=== PATIENT | male | born 1955 | race Caucasian/White ===

== ENCOUNTER 2020-11-04 13:11 | Observation (INO) | payer OTHER, SELFPAY ==
[2020-11-04] VITALS (8 sets, daily range): BP systolic 156–197; BP diastolic 92–107; PULSE 74–107; RESP 17–25; TEMP 37–37.1; O2SAT 97–100
--- NOTE | ~2020-11-04 | XR_ITS ---
EXAMINATION: XR chest 1V portable INDICATION: Midsternal chest pain TECHNIQUE: Portable AP chest at 1346 hours COMPARISON: 05/06/2014 FINDINGS: The lungs are free of acute opacities. There is no pleural effusion or pneumothorax. The ca rdiomediastinal silhouette is normal. There is mild osteoarthritis of the shoulders. IMPRESSION: 1. No acute cardiopulmonary abnormality. Reviewed, dictated and finalized at location A.
--- NOTE | ~2020-11-04 | CT_ITS ---
EXAMINATION: CTA chest PE protocol DATE: 11/04/2020 16:14 INDICATION: Chest pain TECHNIQUE: Computed tomography angiography (CTA) of the chest was performed with 100 mL Omnipaque-350 intravenous contrast timed to evaluate the pulmonary arteries. Coronal maximum intensity projection 3D-reconstructions were created by the technologist. Automated exposure control and iterative reconst ruction technique were employed. Exam dose: 511.66 mGy-cm total exam DLP. COMPARISON: 11/04/2020 portable AP chest FINDINGS: There is diagnostic contrast enhancement of the pulmonary arteries and no evidence of pulmo nary embolism. Normal heart size. There is mild thoracic aortic aneurysm, the ascending aorta measuring up to 4 cm d iameter, the aortic arch measuring up to approximately 3.2 cm diameter. No hilar or mediastinal mass lesion or lymphadenopathy. No pulmonary infiltrate or consolidation or pulmonary mass density. Subacute or old posterior medial right 10th rib fracture deformity. Included skeletal structures are otherwise unremarkable. IMPRESSION: No evidence of pulmonary embolism Reviewed, dictated and finalized at Location A. Reviewed, dictated and finalized at location B.
--- NOTE | ~2020-11-04 | CT_ITS ---
EXAMINATION: CT brain wo con INDICATION: Headache COMPARISON: None TECHNIQUE: Standard unenhanced head CT. The dose-length product (DLP) was 605.33 mGy-cm. The mA was a djusted according to patient size. Iterative reconstruction technique was employed. FINDINGS: There is no acute intraparenchymal hemorrhage. No evidence of mass lesion. No evidence of a cute infarction. There is mild periventricular and subcortical hypodensity probably related to small vessel ischemic disease. There is mild prominence of the sulci and ventricles related to cerebral atr ophy. Intracranial calcified cerebral atherosclerosis is noted. There are no extra-axial collections. There is no mass effect or midline shift. The orbits and soft tissues are unremarkable. There is mil d mucosal thickening of the paranasal sinuses. IMPRESSION: 1. No acute intracranial abnormality. 2. Age related findings. Reviewed, dictated and finalized at location A.
--- NOTE | 2020-11-04 13:26 | ECG_ITS ---
Measurements Intervals [place] Rate: 72 P: 79 NM: 148 QRS: 12 QRSD: 93 T: 72 QT: 418 QTc: 459 Interpretive Statements SINUS RHYTHM RIGHT ATRIAL ENLARGEMENT LEFT ATRIAL ENLARGEMENT INCOMPLETE RIGHT BUNDLE BRANCH BLOCK BORDERLINE ECG Electronically Signed On 11-04-2020 13:28:02 CDT by Jeovanny Olson D.O.
--- NOTE | 2020-11-04 13:32 | ED.CHESTPAIN ---
HPI - Chest Pain General Chief Complaint: Chest Pain Stated Complaint: MULTIPLE C/O Time Seen by Provider: 11/04/20 13:28 Source: RN notes reviewed History of Present Illness HPI narrative: Patient presents emergency department from shelter via EMS for chest pain. Patient states symptoms again 2 hours ago. States chest pain across his midsternal chest that radiates up into his left jaw states the pain is described as a heaviness with a feeling of numbness left side of his face states is associated with shortness of breath. States he has a history of 3 previous MIs but has no current stents does have a history of hypertension for which he takes medicine for pain denies any fever chills abdominal pain nausea vomiting or any other medications Related Data Allergies Allergy/AdvReac Type Severity Reaction Status Date / Time morphine AdvReac Itching Verified 11/04/20 15:56 Review of Systems Review of Systems: Gen.: Denies fevers or chills Eyes: Denies eye pain or visual change ENT: Denies congestion Respiratory: Reports shortness of breath CV: See HPI GI: Denies abdominal pain nausea, emesis or diarrhea Musculoskeletal: Denies back pain or muscle pain Neuro: Denies numbness, tingling, weakness or focal weakness Skin: Denies rash Except as documented, all other systems reviewed and negative [facility] Past Medical History Medical History (Updated 11/04/20 @ 16:46 by Maurice Keen DO) Coronary artery disease Hypertension Social History Social History (Updated 11/04/20 @ 13:34 by Maurice Keen DO) Smoking status: Current every day smoker Gender identity (if verbalized by the patient): Male Exam Narrative: APPEARANCE: No acute distress, nontoxic, resting in bed EYES: EOMI HEENT: Normocephalic, atraumatic, OMM RESPIRATORY: No respiratory distress Clear to auscultation bilaterally with no rhonchi wheezing or rales. CARDIOVASCULAR: Regular rate and rhythm without murmurs rubs or gallops. Bilateral radial pulse 2+ ABDOMINAL: Soft, nontender, nondistended, no rebound or guarding MUSCULOSKELETAl: Moves all extremities. No clubbing, cyanosis or edema. NEURO: Awake and alert x 4. Following commands, speech normal, no focal deficits no facial droop SKIN:: Warm, dry. No rashes lesions or abrasions PSYCHIATRIC: Normal affect/mood, Course Course Emergency Course: Patient given nitro continues to have pain when to get morphine states not take more amount can take Dilaudid Called and discussed with JOSE DE JESUS Calle for Dr Wilkinson presentation work-up agrees with consult at this time Discussed with CHRIS Bardales for Dr Wilkinson presentation work-up agrees with admission Discussed with patient and family results of workup and diagnosis. Discussed need for admission. Patient and family understand and agree to current treatment plan Vital Signs Vital signs: Vital Signs Temperature 98.7 F 11/04/20 13:13 Pulse Rate 74 11/04/20 13:13 Respiratory Rate 17 11/04/20 13:13 Blood Pressure 192/104 H 11/04/20 13:13 Pulse Oximetry 100 11/04/20 13:13 Temperature 98.7 F 11/04/20 13:13 Pulse Rate 76 11/04/20 13:20 Respiratory Rate 17 11/04/20 13:13 Blood Pressure 192/104 H 11/04/20 13:13 Pulse Oximetry 100 11/04/20 13:13 MDM - Chest Pain Lab Data Result diagrams: 11/04/20 13:44 11/04/20 13:46 Labs: Lab Results 11/04/20 11/04/20 11/04/20 Range/Units 13:44 13:46 13:46 WBC 10.2 H (4.5-10.0) K/mm3 RBC 6.06 (4.6-6.20) M/mm3 Hgb 17.3 (14.0-18.0) g/dL Hct 53.4 H (42.0-52.0) % MCV 88.1 (80-100) fl MCH 28.5 (26-34) pg MCHC 32.4 (32-36) g/dl RDW 13.2 (11.5-14.5) % Plt Count 330 (150-375) k/mm3 MPV 9.5 (7.4-10.4) fl Immature Gran % (Auto) 0.4 (0-0.5) % Neut % (Auto) 70.9 (45.5-73.1) % Lymph % (Auto) 18.2 L (18.3-44.2) % [place] % (Auto) 7.8 (2.6-8.5) % Eos % (Auto) 1.9 (0-4.4) % Baso % (Auto) 0.8 (0.2-1.2
[2020-11-04] MEDS: ASPIRIN 81 MG CHEWABLE TABLET 324 MG PO (13:43)
[2020-11-04 13:52] LABS: Basophils Absolute Auto 0.1 K/mm3 (0.0-0.1); Basophils Percent Auto 0.8 % (0.2-1.2); Eosinophils Absolute Auto 0.2 K/mm3 (0-0.3); Eosinophils Percent Auto 1.9 % (0-4.4); Hematocrit 53.4 % (42.0-52.0); Hemoglobin 17.3 g/dL (14.0-18.0); Immature Granulocyte Absolute 0.04 K/mm3 (0.00-0.031); Immature Granulocyte Percent A 0.4 % (0-0.5); Lymphocytes Absolute Auto 1.85 K/mm3 (0.9-3.2); Lymphocytes Percent Auto 18.2 % (18.3-44.2); Mean Corpuscular HGB Conc 32.4 g/dl (32-36); Mean Corpuscular Hemoglobin 28.5 pg (26-34); Mean Corpuscular Volume 88.1 fl (80-100); Mean Platelet Volume 9.5 fl (7.4-10.4); Monocytes Absolute Auto 0.8 K/mm3 (0.1-0.6); Monocytes Percent Auto 7.8 % (2.6-8.5); Neutrophils Absolute Auto 7.2 K/mm3 (1.3-6.7); Neutrophils Percent Auto 70.9 % (45.5-73.1); Platelet Count Result 330 k/mm3 (150-375); Red Blood Count 6.06 M/mm3 (4.6-6.20); Red Cell Distribution Width 13.2 % (11.5-14.5); White Blood Count 10.2 K/mm3 (4.5-10.0)
[2020-11-04 14:01] LABS: INR 0.9; Prothrombin Time 11.7 Seconds (11.1-14.7)
[2020-11-04 14:02] LABS: Partial Thromboplastin Time 26.3 SECONDS (22.3-36.8)
[2020-11-04 14:03] LABS: Alanine Aminotransferase 25 U/L (4-50); Albumin Level 4.6 g/dL (3.5-5.1); Alkaline Phosphatase 75 U/L (38-126); Anion Gap 7 mmol/L (8-16); Aspartate Amino Transferase 37 U/L (17-59); Bilirubin,Total 0.6 mg/dL (0.2-1.3); Blood Urea Nitrogen 18 mg/dL (9-20); Calcium 9.9 mg/dL (8.4-10.2); Carbon Dioxide 31 mmol/L (22-30); Chloride 100 mmol/L (98-107); Estimated CRCL calculation 71 ml/min; Estimated Glomerular Filt Rate > 60; Glucose 111 mg/dL (65-110); Lipase 308 U/L (23-300); Potassium 4.2 mmol/L (3.4-5.0); Sodium 138 mmol/L (137-145)
[2020-11-04 14:14] LABS: Troponin I 0.031 ng/mL (0.000-0.034)
--- NOTE | 2020-11-04 14:15 | ECG_ITS ---
Measurements Intervals [place] Rate: 73 P: 106 NM: 149 QRS: 198 QRSD: 97 T: 120 QT: 434 QTc: 481 Interpretive Statements SINUS RHYTHM ARM LEADS REVERSED BASELINE ARTIFACT- V1 ATYPICAL ECG Electronically Signed On 11-04-2020 14:40:43 CDT by Jeovanny Olson D.O.
[2020-11-04] MEDS: NITROGLYCERIN OINTMENT 1 INCH DOSE TRANSDERM (15:13)
[2020-11-04] MEDS: HYDROmorphone HCL INJ (*CRX) 1 MG/ML SYR 0.5 MG IV PUSH (16:38)
--- NOTE | 2020-11-04 18:00 | PM.IMHP ---
H&P: HPI History of Present Illness Date/Time: 11/04/20 18:00 Chief Complaint: Chest pain. Narrative: This is a pleasant 65-year-old male smoker with history of hypertension and myocardial infarction x3 who presented to the emergency department earlier today via EMS from [facility] for evaluation of chest pain. He reports ongoing issues with drug addiction since his teenage years and he has been using IV fentanyl about every 6 hours more recently. Last week he was picked up for his drug use, has been in skilled nursing since that time, and he has not had any significant withdrawal symptoms. He has not been feeling well however over the past couple of days and says it feels more so like when his blood pressures running high. He takes hydrochlorothiazide at home and has been receiving that while in skilled nursing though his blood pressures have been running in the 190s the past couple of days. In addition to generalized headache he has also had tingling in the left side of his face as well as midsternal chest heaviness ?like an elephant is sitting on there? associated with shortness of breath and dizziness. He was given aspirin 324 mg, 0.5 mg hydromorphone, and was started on nitroglycerin paste with some improvement in his symptoms. His primary care provider is affiliated with [facility] in [place] and that is where he had his last cardiac catheterization, approximately 7 - 8 years ago. At that time he thinks he had about 50% blockage of a couple of vessels and he was treated medically. He denies focal weakness, current paresthesias, dysarthria, dysphagia, auditory and visual changes, orthopnea, pleuritic pain, palpitations, cough, nausea, vomiting, and sweats. No esophageal or abdominal discomfort. Review of Systems Review of Systems: Twelve systems were reviewed with pertinent positives and negatives as per HPI. No fever, chills, or sweats. He denies sinus congestion, rhinorrhea, otalgia, and odynophagia. No known exposure to those positive for COVID 19. Occasional lower extremity cramping however he reports this typically occurs when withdrawing from fentanyl. No claudication. Except as documented, all other systems were reviewed and are negative. [facility] Past Medical History Medical History (Updated 11/04/20 @ 21:31 by Catia Purdy PA-C) Coronary artery disease [place] x3, treated medically. Drug addiction Ongoing issue since the patient was a teen. Currently using IV fentanyl 6 times daily. Hypertension Tobacco dependence Surgical History Surgical History (Updated 11/04/20 @ 21:24 by Catia Purdy PA-C) History of cardiac catheterization History of lumbar surgery History of repair of right rotator cuff Family History Family History (Updated 11/04/20 @ 21:25 by Catia Purdy PA-C) Other Cerebral aneurysm Drug addiction Heart disease Social History Social History (Updated 11/04/20 @ 21:26 by Catia Purdy PA-C) Social History: The patient lives in [place]. Not currently working. He smokes about a pack or less of cigarettes a day for the last 50 years. He has not drank alcohol for many years. Ongoing issues with drug addiction since the age of 15, currently using IV fentanyl. He designates his sister, Jo-Ann Monet, as his surrogate decision maker and he wishes to be a full code. Meds Home Medications and Allergies Allergies Allergy/AdvReac Type Severity Reaction Status Date / Time morphine AdvReac Itching Verified 11/04/20 15:56 Vital Signs Vital Signs - 24 hr 11/04/20 13:13 11/04/20 13:20 11/04/20 16:44 Temperature 98.7 F Pulse Rate 74 76 96 Respiratory Rate 17 17 Blood Pressure 192/104 H 197/106 H Pulse Oximetry 100 98 11/04/20 18:30 11/04/20 20:10 11/04/20 20:30 Temperature 98.6 F Pulse Rate 85 88 80 Respiratory Rate 18 25 H 18 Blood Pressure 178/100 H 169/107 H 156/92 H Pulse Oximetry 99 97 97 Exam Narrative: General: Well-developed male in the semi-Soliz positi
--- NOTE | 2020-11-04 21:10 | ADMGEN ---
This patient, Micah Barros, was admitted to IMU Room 205-02. Patient/family oriented to hospital policies and general routines including ID bracelet, bed and alarms, visiting hours, pain management, procedures, bathroom and other care routines, personal items, smoking policy, room service/diet, and visiting hours. Information on how to activate the Rapid Response Team has been discussed. Patient/Family are encouraged to report perceived risks to care and to ask questions if they do not understand what they are told or what they should do.
[2020-11-04 21:17] LABS: Troponin I 0.026 ng/mL (0.000-0.034)
[2020-11-04] MEDS: NICOTINE (*PBKC) 21 MG PATCH 1 PATCH TRANSDERM (22:28)
[2020-11-04] MEDS: METOPROLOL TARTRATE 25 MG TABLET PO (22:28)
[2020-11-05] VITALS (11 sets, daily range): BP systolic 147–167; BP diastolic 88–94; PULSE 57–79; RESP 12–18; TEMP 37–37.1; O2SAT 92–100
[2020-11-05] MEDS: ACETAMINOPHEN 325 MG TABLET 650 MG PO (03:55)
[2020-11-05] MEDS: IPRATROPIUM BR 0.02% INH SOLN 0.5 MG/2.5 ML VIAL INHALATION ×2 (03:55→08:45)
[2020-11-05] MEDS: ALBUTEROL SULFATE NEB 2.5 MG/0.5 ML INH INHALATION ×2 (03:55→08:45)
[2020-11-05 06:52] LABS: Basophils Absolute Auto 0.1 K/mm3 (0.0-0.1); Basophils Percent Auto 0.9 % (0.2-1.2); Eosinophils Absolute Auto 0.2 K/mm3 (0-0.3); Eosinophils Percent Auto 1.7 % (0-4.4); Hemoglobin 16.7 g/dL (14.0-18.0); Immature Granulocyte Absolute 0.04 K/mm3 (0.00-0.031); Immature Granulocyte Percent A 0.4 % (0-0.5); Lymphocytes Absolute Auto 1.37 K/mm3 (0.9-3.2); Lymphocytes Percent Auto 13.7 % (18.3-44.2); Mean Corpuscular HGB Conc 32.7 g/dl (32-36); Mean Corpuscular Hemoglobin 28.6 pg (26-34); Mean Corpuscular Volume 87.5 fl (80-100); Mean Platelet Volume 9.4 fl (7.4-10.4); Monocytes Absolute Auto 0.8 K/mm3 (0.1-0.6); Monocytes Percent Auto 8.4 % (2.6-8.5); Neutrophils Absolute Auto 7.5 K/mm3 (1.3-6.7); Neutrophils Percent Auto 74.9 % (45.5-73.1); Platelet Count Result 278 k/mm3 (150-375); Red Blood Count 5.83 M/mm3 (4.6-6.20); Red Cell Distribution Width 13.2 % (11.5-14.5)
[2020-11-05 07:03] LABS: Alanine Aminotransferase 19 U/L (4-50); Albumin Level 3.8 g/dL (3.5-5.1); Alkaline Phosphatase 65 U/L (38-126); Anion Gap 8 mmol/L (8-16); Aspartate Amino Transferase 28 U/L (17-59); Bilirubin,Total 0.6 mg/dL (0.2-1.3); Blood Urea Nitrogen 19 mg/dL (9-20); Calcium 9.3 mg/dL (8.4-10.2); Carbon Dioxide 24 mmol/L (22-30); Chloride 101 mmol/L (98-107); Cholesterol 166 mg/dL (0-200); Estimated CRCL calculation 78 ml/min; Estimated Glomerular Filt Rate > 60; Glucose 106 mg/dL (65-110); HDL Direct 43 mg/dL; Lipase 334 U/L (23-300); Potassium 4.1 mmol/L (3.4-5.0); Sodium 133 mmol/L (137-145); Triglycerides 113 mg/dL (<150)
[2020-11-05 07:14] LABS: LDL Cholesterol Direct 88 mg/dL
--- NOTE | 2020-11-05 09:05 | PM.CNCAR ---
Assessment and Plan Additional Plan this is a 65-year-old man brought here from correction because of chest pain and concern regarding acute coronary syndrome. He reports a history of 3 previous myocardial infarctions in the past which I would find highly doubtful. In any event there is no evidence of acute coronary syndrome his ECGs are normal and he has 3 normal sets of troponins. I have reassured him that he did not suffer another myocardial infarction and there is no evidence of an acute cardiac problem. Other than maintenance of low-dose aspirin I do not have any specific cardiac recommendations. 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 Fabricio Arce MD [facility] History of Present Illness History of Present Illness Consult date/time: 11/05/20 09:05 Consult reason: chest pain Reason For Visit: chest pain Narrative: This is a 65-year-old man I am seeing this morning at the request of the hospitalist because of chest pain with which he was seen in emergency room last evening and subsequently admitted to the hospital overnight. The patient is unknown to me prior to this encounter. Apparently he is incarcerated in the [facility] correction and began to experience symptoms yesterday. He describes a sequence of somewhat unusual symptoms where he felt lightheaded after he took his medications in the morning in his cell. He was taken to the nurse at the correction and she found him to be hypertensive and in no other distress. He was put back in his cell and later in the day started report some chest pain. He describes this as a pressure-like sensation in the center of the chest. At that point he says the physician in the correction was notified and he was directed to call an ambulance and bring [facility] to be evaluated. In the emergency room his electrocardiogram was normal. His repeat ECG is also benign but was remarkable for reversal of right and left arm leads. His troponin levels were normal in the emergency room and have remained normal x3 sets. The discomfort that with which he came in is largely resolved but still there was slight amount. Does not have any recent history of exertional chest discomfort at all. He does have a history of illicit drug use and with injecting fentanyl primarily. He was in the correction apparently With charges that the are related to his drug abuse. he does not describe any other cardiac symptoms currently. He does have a history of [place] 3 times in the past. He has been seen by and considers himself to be a patient of a flexographic press plate setter up in [place] even though he says the physician has not seen him in about 5 or 6 years. He states that he has had a previous coronary angiogram done by that physician he thinks up in [facility] in 1 when he had 1 of these episodes and he was found to have mild nonobstructive coronary artery disease. Obviously would have any of those records here available for my review at [facility]. He offers no other complaints and appears to be essentially comfortable this morning. Review of Systems Constitutional: Constitutional: Reports no additional constitutional complaints Eyes: Eyes: Reports no additional eye complaints ENT: Reports system reviewed and no additional complaints, except as documented Cardiovascular: Cardiovascular: Reports as per HPI Respiratory: Respiratory: Reports no additional respiratory complaints Gastrointestinal: Gastrointestinal: Reports no additional gastrointestinal complaints Musculoskeletal: Musculoskeletal: Reports no additional musculoskeletal complaints Integumentary/Breasts: Skin/Breast: Reports system reviewed and no additional complaints, except as docu Neurologic: Reports system reviewed and no additional complaints, except as documented Psychiatric: Psychiatric: Reports no additional psychiat
[2020-11-05] MEDS: METOPROLOL TARTRATE 25 MG TABLET PO (09:07)
[2020-11-05] MEDS: ENOXAPARIN 40 MG/0.4 ML SYRINGE SUB-Q (09:07)
[2020-11-05] MEDS: ASPIRIN 81 MG ENTERIC TABLET PO (09:08)
[2020-11-05] MEDS: hydroCHLOROthiazide 12.5 MG CAPSULE PO (09:08)
--- NOTE | 2020-11-05 09:12 | PM.DS ---
DS: Admitting Diagnosis Admitting Diagnosis Chest pain DS: Discharge Diagnosis Discharge Diagnosis (1) Chest pain: Code(s): R07.9 - Chest pain, unspecified Status: Acute (2) Facial paresthesia: Code(s): R20.2 - Paresthesia of skin Status: Acute (3) Hypertensive urgency: Code(s): I16.0 - Hypertensive urgency Status: Acute (4) Coronary artery disease: Code(s): I25.10 - Atherosclerotic heart disease of [place] coronary artery without angina pectoris Status: Acute (5) Hypertension: Code(s): I10 - Essential (primary) hypertension Status: Acute (6) Drug addiction: Code(s): F19.20 - Other psychoactive substance dependence, uncomplicated Status: Acute (7) Tobacco dependence: Code(s): F17.200 - Nicotine dependence, unspecified, uncomplicated Status: Acute (8) COPD (chronic obstructive pulmonary disease): Code(s): J44.9 - Chronic obstructive pulmonary disease, unspecified Status: Acute DS: Summary Hospital Course Reason for hospitalization: 65yo male with HTN and CAD (hx of 3 NH's in the past) brought to the ED by EMS from [facility] for chest pain. Please see H&P for details. Hospital Course: Patient presents with complaints of chest pain. Blood pressure on admission was 192/104 which could be the etiology of his chest pain. EKG showed biatrial enlargement and incomplete right bundle branch block. Troponin was negative x3. CTA was negative for PE. There is no pneumonia or other cardiopulmonary findings. Old right 10th rib fracture noted. Lipase was 334. Labs otherwise were unremarkable. Patient was complaining of headache and left-sided paresthesias but CT the brain was normal. Patient states that he has had 3 MIs in the past. He had a heart catheterization 7-8 years ago which showed up to 50% stenosis in some vessels that was treated medically. Patient has COPD and is on p.r.n. oxygen at home. No acute exacerbation. We continued his nebulizers. Patient states he takes hydrochlorothiazide at home so this was resumed. Metoprolol was added. He was seen by cardiology here but no further recommendations were added. Patient was educated about the benefits of abstain from tobacco and drug use. He was specifically reminded not to smoke around his oxygen. He voiced understanding of this. He does not use cocaine and thus it was felt metoprolol would be safe to use. Blood pressure did improve with this treatment. Systolic blood pressure running 140-60 range.He did have a cholesterol 166 with an LDL of 88. Given his known coronary disease, Lipitor was added to his regimen. He did have a brief run of wide complex irregular tachycardia; Cardiology was aware and no changes recommended. His symptoms have resolved. He is eager for discharge. He plans to follow-up with Dr. Maya after discharge. Patient was a to be discharged home on 11/05/2020. Status at Discharge Cognitive/behavioral status at discharge: stable Time Spent with Patient Time attestation: Total time spent providing and/or coordinating discharge services: 32 minutes Time spent: Greater than 30 minutes Specific discharge activities: education Exam Narrative: AF 98.6 167/88 66 16 92% ra Gen - NARD Chest - CTA bilaterally, nml RR CV - RRR S1/S2; telemetry showing no significant dysrhythmia Abd - Soft, NT/ND, Positive BS Ext - No pedal edema Psych - Nml mood and affect Skin - Warm and dry DS: Data Data Completed and Pending Labs on day of discharge: Labs from last 24 hours 11/05/20 11/05/20 11/04/20 06:36 06:36 20:42 WBC 10.0 RBC 5.83 Hgb 16.7 Hct 51.0 MCV 87.5 MCH 28.6 MCHC 32.7 RDW 13.2 Plt Count 278 MPV 9.4 Immature Gran % (Auto) 0.4 Neut % (Auto) 74.9 H Lymph % (Auto) 13.7 L [place] % (Auto) 8.4 Eos % (Auto) 1.7 Baso % (Auto) 0.9 Lymph # (Auto) 1.37 [place] # (Auto) 0
== END 2020-11-05 11:55 | disposition home or self-care (01) ==
LOC: ANHED 16:46 → ANHIMU 18:44
PROVIDERS: Physician Assistant; Admitting Provider Internal Medicine; Emergency Provider Emergency Medicine; PCP Family Medicine; Visit Provider Internal Medicine
DX: R07.9 Chest pain, unspecified (principal); J44.9 Chronic obstructive pulmonary disease, unspecified; Z99.81 Dependence on supplemental oxygen; I10 Essential (primary) hypertension; F17.210 Nicotine dependence, cigarettes, uncomplicated; I16.0 Hypertensive urgency; F19.20 Other psychoactive substance dependence, uncomplicated; R20.2 Paresthesia of skin; I25.10 Atherosclerotic heart disease of native coronary artery without angina pectoris
CPT/HCPCS: 36415; 70450; 71045; 71275; 80053; 80061; 83690; 83735; 84484; 85025; 85610; 85730; 93005; 94640; 96372; 96374; 99285; A9270; G0378; G0379; J1170; J1650; Q9967

== ENCOUNTER 2021-07-31 14:05 | Emergency (ER) | payer OTHER, SELFPAY ==
--- NOTE | ~2021-07-31 | XR_ITS ---
XR chest 2V DATE: 07/31/2021 14:28 INDICATION: Midsternal chest pain, radiating to left arm. Diaphoresis. M evaluate TECHNIQUE: AP and lateral views COMPARISON: 11/04/2020 portable AP chest CTA chest FINDINGS: Normal heart size. Aortic calcification and mild tortuosity. No hilar or mediastinal mass o r adenopathy is noted. Bilateral hyperinflation. No pulmonary infiltrate or consolidation, pleural ef fusion or pulmonary vascular congestion or pneumothorax. Diffuse osteopenia. Dextroscoliosis of the thoracic spine and levoscoliosis of the lumbar spine. IMPRESSION: No active cardiopulmonary disease Aortic calcification and tortuosity Reviewed, dictated and finalized at location [facility].
[2021-07-31 14:00] VITALS: BP 163/90; PULSE 95; RESP 18; TEMP 36.4; O2SAT 98
--- NOTE | 2021-07-31 14:09 | ECG_ITS ---
Measurements Intervals [place] Rate: 113 P: 78 [place]: 136 QRS: -26 QRSD: 97 T: 71 QT: 344 QTc: 473 Interpretive Statements SINUS TACHYCARDIA FREQUENT ATRIAL PREMATURE COMPLEXES RIGHT ATRIAL ENLARGEMENT LEFT ATRIAL ENLARGEMENT BORDERLINE T WAVE ABNORMALITY- HIGH LATERAL LEADS BASELINE WANDER- V1-V2 ABNORMAL ECG Electronically Signed On 08-01-2021 7:42:17 CDT by Jeovanny Olson D.O.
--- NOTE | 2021-07-31 14:35 | PC.NURSE ---
multiple iv attempts by ems unsuccessful. iv attempt by me unsuccessful. pt noted to have extensive iv track park
[2021-07-31 14:53] LABS: Basophils Absolute Auto 0.1 K/mm3 (0.0-0.1); Basophils Percent Auto 0.5 % (0.2-1.2); Eosinophils Percent Auto 0.3 % (0-4.4); Hematocrit 56.8 % (42.0-52.0); Immature Granulocyte Absolute 0.04 K/mm3 (0.00-0.031); Immature Granulocyte Percent A 0.3 % (0-0.5); Lymphocytes Percent Auto 12.6 % (18.3-44.2); Mean Corpuscular HGB Conc 33.5 g/dl (32-36); Mean Corpuscular Hemoglobin 28.8 pg (26-34); Mean Corpuscular Volume 86.2 fl (80-100); Mean Platelet Volume 9.5 fl (7.4-10.4); Monocytes Percent Auto 7.5 % (2.6-8.5); Neutrophils Percent Auto 78.8 % (45.5-73.1); Platelet Count Result 405 k/mm3 (150-375); Red Blood Count 6.59 M/mm3 (4.6-6.20); Red Cell Distribution Width 13.9 % (11.5-14.5); White Blood Count 12.7 K/mm3 (4.5-10.0)
[2021-07-31 15:04] LABS: INR 1.1; Prothrombin Time 13.4 Seconds (11.1-14.7)
[2021-07-31 15:10] LABS: Alanine Aminotransferase 24 U/L (4-50); Albumin Level 4.6 g/dL (3.5-5.1); Alkaline Phosphatase 91 U/L (38-126); Anion Gap 12 mmol/L (8-16); Aspartate Amino Transferase 49 U/L (17-59); Blood Urea Nitrogen 33 mg/dL (9-20); Calcium 9.4 mg/dL (8.4-10.2); Carbon Dioxide 25 mmol/L (22-30); Chloride 97 mmol/L (98-107); Estimated CRCL calculation 60 ml/min; Estimated Glomerular Filt Rate > 60; Glucose 123 mg/dL (65-110); Lipase 298 U/L (23-300); Potassium 3.9 mmol/L (3.4-5.0); Sodium 134 mmol/L (137-145)
[2021-07-31 15:40] LABS: NT Pro B Type Natriuretic Pept 11900 pg/mL (5-100)
[2021-07-31 15:42] LABS: Troponin I 0.077 ng/mL (0.000-0.034)
[2021-07-31 15:45] VITALS: BP 190/115; PULSE 83; RESP 20; O2SAT 99
--- NOTE | 2021-07-31 15:45 | PC.NURSE ---
pt states he is leaving because his ride is here. iv disconnected. pt made aware of risk of . states will follow up with pmd tomorrow. edp now at bedside for exam.
--- NOTE | 2021-07-31 15:52 | ED.CHESTPAIN ---
HPI - Chest Pain General Chief Complaint: Chest Pain Stated Complaint: chest pressure Time Seen by Provider: 07/31/21 14:57 Source: patient Mode of arrival: EMS Limitations: no limitations History of Present Illness HPI narrative: 66 years old white male came by ambulance complaining of chest pain, shortness of breath, nausea started in the last few hours prior to arrival to the emergency room. Patient received aspirin and nitroglycerin prior to arrival with improvement. History of IV drug abuse. He denies any fever, chills, vomiting, back pain, headache. History of [place], hypertension, hyperlipidemia, COPD not on oxygen, he is a smoker, denies drinking or drug use. Related Data Home Medications Medication Instructions Recorded Confirmed albuterol sulfate 2 puff INHALATION PRN PRN 11/04/20 11/04/20 ipratropium-albuterol 3 ml INHALATION QID 11/04/20 11/04/20 Allergies Allergy/AdvReac Type Severity Reaction Status Date / Time morphine AdvReac Itching Verified 11/04/20 15:56 Review of Systems Review of Systems: All systems reviewed & are unremarkable except as noted in HPI and below PMFSH Past Medical History Medical History COPD (chronic obstructive pulmonary disease) Coronary artery disease [place] x3, treated medically. Drug addiction Ongoing issue since the patient was a teen. Currently using IV fentanyl 6 times daily. Hypertension Tobacco dependence Surgical History Surgical History History of cardiac catheterization History of lumbar surgery History of repair of right rotator cuff Family History Family History Other Cerebral aneurysm Drug addiction Heart disease Social History Social History Social History: The patient lives in [place]. Not currently working. He smokes about a pack or less of cigarettes a day for the last 50 years. He has not drank alcohol for many years. Ongoing issues with drug addiction since the age of 15, currently using IV fentanyl. He designates his sister, Jo-Ann Monet, as his surrogate decision maker and he wishes to be a full code. Exam Narrative: General appearance: Well-developed, well-nourished, sick looking Skin: pale Head: Normocephalic, nontraumatic Eyes: Clear conjunctiva ENT: Oropharynx normal, ears normal, nose normal Neck: Supple, nontender Chest and respiratory: Airway patent, no respiratory distress, no accessory muscle use Heart: Tachycardia Abdomen: Soft, nontender, no organomegaly, quiet bowel sounds Vascular: Normal peripheral pulses, normal capillary refill. 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 Patient declined to wait for the rest of the blood work-up and he would like to go home AMA. Work-up showed elevated hemoglobin up to 19, which could be secondary to COPD, dehydration, heart failure, polycythemia vera, smoking. Elevated troponin could be secondary to the sinus tachycardia on arrival to the emergency room or coronary artery disease. Vital Signs Vital signs: Vital Signs Temperature 36.4 C L 07/31/21 14:00 Pulse Rate 95 07/31/21 14:00 Respiratory Rate 18 07/31/21 14:00 Blood Pressure 163/90 H 07/31/21 14:00 Pulse Oximetry 98 07/31/21 14:00 Temperature 36.4 C L 07/31/21 14:00 Pulse Rate 95 07/31/21 14:00 Respiratory Rate 18 07/31/21
[2021-07-31 16:05] LABS: D Dimer 0.89 ug/mL (<0.48)
== END 2021-07-31 15:45 | disposition left against medical advice (07) ==
PROVIDERS: Emergency Medicine; Emergency Provider Emergency Medicine; PCP Family Medicine
DX: D75.1 Secondary polycythemia (principal); I21.4 Non-ST elevation (NSTEMI) myocardial infarction; J44.9 Chronic obstructive pulmonary disease, unspecified; I25.2 Old myocardial infarction; I25.10 Atherosclerotic heart disease of native coronary artery without angina pectoris; I10 Essential (primary) hypertension; E78.5 Hyperlipidemia, unspecified; F17.210 Nicotine dependence, cigarettes, uncomplicated; Z88.6 Allergy status to analgesic agent
CPT/HCPCS: 36415; 71046; 80053; 83690; 83880; 84484; 85025; 85380; 85610; 85730; 93005; 99284

== ENCOUNTER 2024-01-27 14:52 | Emergency (ER) | payer MEDICAID, SELFPAY ==
[2024-01-27] VITALS (55 sets, daily range): BP systolic 97–138; BP diastolic 64–88; PULSE 51–71; RESP 10–32; TEMP 36.7–36.8; O2SAT 94–99
--- NOTE | ~2024-01-27 | CT_ITS ---
EXAMINATION: CT abdomen pelvis wo con DATE: 01/27/2024 16:31 INDICATION: Epigastric abdominal pain for one day TECHNIQUE: Computed tomography (CT) of the abdomen and pelvis was performed without intravenous contr ast. Automated exposure control and iterative reconstruction technique were employed. Exam dose: 366 .48 mGy-cm total exam DLP. COMPARISON: 05/27/2014 abdominal ultrasound examination FINDINGS: Heart size is normal. Prominent coronary artery calcifications. No pericardial or pleural e ffusion. No hepatic, splenic, pancreatic, adrenal or renal space-occupying mass lesion is evident on this limi elma noncontrast examination. No urinary tract calculus or hydroureteronephrosis. Status post cholecystectomy. No bile duct or pancreatic duct dilatation. The prostate gland is moderately enlarged, with mild calcification. The urinary bladder appears unrem arkable. There is extensive calcification of the abdominal aorta, superior mesenteric artery, prominent calcif ication at the origin of the left renal artery in particular. No abdominal aortic aneurysm. There is prominent calcification of the iliac and femoral arteries. No intraperitoneal or retroperitoneal or pelvic mass lesion or adenopathy or ascites is detected. Normal appendix. No bowel obstruction or intraperitoneal free air. Status post posterior surgical fusion at L4-5. Severe degenerative disc disease at L3-4, moderately severe degenerative disc disease at L1-2. Chroni c mild anterior wedging of L1 vertebral body. Osteopenia. IMPRESSION: Status post cholecystectomy Normal appendix Coronary and abdominal aortic atherosclerosis; no abdominal aortic aneurysm Prostate enlargement and calcifications Reviewed, dictated and finalized at [facility]. Reviewed, dictated and finalized at [facility].
--- NOTE | ~2024-01-27 | XR_ITS ---
XR chest 2V DATE: 01/27/2024 15:45 INDICATION: Chest pain for one day TECHNIQUE: 2 views COMPARISON: 07/31/2021 2 view chest FINDINGS: Bilateral hyperinflation. No pulmonary infiltrate or consolidation, pleural effusion or pul monary vascular congestion or pneumothorax. Normal heart size. Aortic calcification and tortuosity. No hilar or mediastinal enlargement. Osteopenia. IMPRESSION: Bilateral hyperinflation suggesting COPD No active cardiac pulmonary disease Aortic atherosclerosis Reviewed, dictated and finalized at [facility].
--- NOTE | 2024-01-27 14:53 | ECG_ITS ---
Test Date: 2024-01-27 15:00:06 Measurements Intervals [place] Rate: 70 P: 67 MS: 142 QRS: 19 QRSD: 109 T: 81 QT: 409 QTc: 442 Interpretive Statements SINUS RHYTHM WITH OCCASIONAL SUPRAVENTRICULAR PREMATURE COMPLEXES INCOMPLETE RIGHT BUNDLE BRANCH BLOCK [90+ ms QRS DURATION, TERMINAL R IN V1/V2, 40+ ms S IN I/aVL/V4/V5/V6] SEPTAL MYOCARDIAL INFARCTION , PROBABLY OLD [40+ ms Q WAVE IN V1/V2] No previous ECG available for comparison Electronically Signed On 01-29-2024 09:36:04 CDT by Rosa Zuñiga M.D.
--- NOTE | 2024-01-27 15:10 | ED.CHESTPAIN ---
HPI - Chest Pain General Chief Complaint: Chest Pain Stated Complaint: chest pain Time Seen by Provider: 01/27/24 15:03 Source: patient Mode of arrival: ambulatory Limitations: no limitations History of Present Illness HPI narrative: Patient is a 68-year-old male with CAD and a recent stent 1 year ago. He has been having chest pain since last night. It is on the left substernal area. It is a sharp pain and not as significant as prior DC pains. 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 He had cardiac workup done at [facility]. MD complaint: chest pain Pertinent past history: coronary artery disease, prior DC and ROOF [employer] ( Multiple stents) Onset (ago): day(s) (2) Timing of current episode: episodic Prior episodes: Yes Onset: during rest Pain location: substernal and left chest Pain radiation: none Severity: mild Pain scale (0-10): 2 Quality: sharp Relieving factors: nothing Exacerbating factors: nothing Associated symptoms: other ( none) Treatment prior to arrival: none Risk Factors Coronary artery disease risk factors: smoking history, hyperlipidemia and hypertension Thoracic aortic dissection risk factors: none Related Data Home Medications Medication Instructions Recorded Confirmed albuterol sulfate 90 mcg/actuation 2 puff inhalation PRN PRN 11/04/20 01/27/24 aerosol inhaler Shortness Of Breath Or Wheezing ipratropium 0.5 mg-albuterol 3 mg 3 ml inhalation QID 11/04/20 01/27/24 (2.5 mg base)/3 mL nebulization soln amlodipine 10 mg tablet 10 mg PO DAILY 01/27/24 01/27/24 hydralazine 10 mg tablet 20 mg PO BID 01/27/24 01/27/24 ticagrelor 90 mg tablet (Brilinta) 90 mg PO Q12H 01/27/24 01/27/24 umeclidinium 62.5 mcg/actuation 1 inh inhalation DAILY 01/27/24 01/27/24 blister powder for inhalation (Incruse Ellipta) Allergies Allergy/AdvReac Type Severity Reaction Status Date / Time acetaminophen [From Percocet] Allergy Unknown Verified 01/27/24 15:04 hydrocodone Allergy Unknown Verified 01/27/24 15:04 oxycodone [From Percocet] Allergy Unknown Verified 01/27/24 15:04 morphine AdvReac Itching Verified 11/04/20 15:56 Review of Systems Review of Systems: All systems reviewed & are unremarkable except as noted in HPI and below Constitutional: Constitutional: Reports no additional constitutional complaints Eyes: Eyes: Reports no additional eye complaints ENT: Reports system reviewed and no additional complaints, except as documented Cardiovascular: Cardiovascular: Reports no additional cardiovascular complaints Respiratory: Respiratory: Reports no additional respiratory complaints Gastrointestinal: Gastrointestinal: Reports no additional gastrointestinal complaints Genitourinary: Genitourinary: Reports no additional male genitourinary complaints Musculoskeletal: Musculoskeletal: Reports no additional musculoskeletal complaints Integumentary/Breasts: Skin/Breast: Reports system reviewed and no additional complaints, except as docu Neurologic: Reports system reviewed and no additional complaints, except as documented Psychiatric: Psychiatric: Reports no additional psychiatric complaints Endocrine: Endocrine: Reports no additional endocrine complaints Hematologic/Lymphatic: Hematologic/Lymphatic: Reports no additional hematologic/lymphatic complaints Allergic/Immunologic: Allergic/Immunologic: Reports no additional allergic/immunologic complaints PMFSH Past Medical History Medical History COPD (chronic obstructive pulmonary disease) Coronary artery disease DC x3, treated medically. Drug addiction Ongoing issue since the patient was a teen. Currently using IV fentanyl 6 times daily. Hypertension Tobacco dependence Surgical History Surgical History History of cardiac catheterization History of lumbar surgery History of repair of right rotator cuff Family History Family History Other Cerebral aneurysm Drug addiction Heart disease Social History Social History Social History: The patient lives in [place]. Not currently working. He smokes about a pack or less of cigarettes a day for the last 50 years. He has not drank alcohol for many years. Ongoing issues with drug addiction since the age of 15, currently using IV fentanyl. He designates his sister, Jo-Ann Monet, as his surrogate decision maker and he wishes to be a full code. Exam Const: General: healthy appearing Nutritional Appearance: well nourished Orientation/consciousness: patient oriented x3 HENMT: Head: normal to inspection Ears: external ears normal Face/Nose/Sinus: Normal external nose present Eyes: Conjunctivae: conjunctivae normal Pupils: Equal, round and reactive pupils present EOM: EOMs intact bilaterally Neck: Neck: normal visual inspection Chest: Chest palpation & inspection: normal inspection of the chest Resp: Effort & Inspection: normal respiratory effort and not labored Auscultation: clear to auscultation bilaterally and no crackles Cardio: Rate: regular rate Rhythm: regular rhythm Heart sounds: no murmurs GI: Inspection: non-distended GI Palp: Yes Soft to palpation and No Tenderness to palpation present (GI) Auscultation: normal bowel sounds : General: Yes bladder normal to palpation Back/Spine/Pelvis: Back: no CVA tenderness Skin: General skin exam: normal color Rashes: no rashes Wounds: no wounds Neuro: General: patient oriented x3 Cranial nerves: Yes Nystagmus not present Speech: normal speech Extrem: General: normal to inspection Psych: Mental Status: mental status grossly normal Affect: normal affect Attitude: cooperative Course Vital Signs Vital signs: Vital Signs Temperature 36.7 C 01/27/24 15:03 Pulse Rate 71 01/27/24 15:03 Respiratory Rate 24 H 01/27/24 15:03 Blood Pressure 125/79 01/27/24 15:03 Pulse Oximetry 99 01/27/24 15:03 Oxygen Delivery Room Air 01/27/24 15:03 Temperature 36.7 C 01/27/24 15:03 Pulse Rate 59 L 01/27/24 18:46 Respiratory Rate 16 01/27/24 18:46 Blood Pressure 97/66 L 01/27/24 18:46 Pulse Oximetry 95 01/27/24 18:46 Oxygen Delivery Room Air 01/27/24 15:10 MDM - Chest Pain MDM Narrative Medical decision making narrative: patient is a 68-year-old male with chest pain. We will do cardiac workup and likely transfer for monitoring cardiac care overnight at higher level medical care. patient is having his chronic back pain but not chest pain during his hospitalization in the ER. Cardiology at [facility] (Dr. 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 We will go ahead and transfer the patient for further cardiac evaluation. In lieu of his light blood pressures and allergy to morphine we will just monitor the pain at this time as it is mostly his chronic back pain. This is not ripping pain from the chest to the back to suggest aneurysm. His complaints are chronic in nature for the back pain. tele monitor shows unifocal PVCs from time to time which have not been captured on EKG. Lab Data Attestation: I reviewed the patient's lab results. 01/27/24 15:01/27/24 15: Labs: Lab Results 01/27/24 01/27/24 01/27/24 Range/Units 15:28 15: 15: WBC 10.1 (4.8-10.8) K/mm3 RBC 4.81 (4.70-6.10) M/mm3 Hgb 14.2 (12.4-15.3) g/dL Hct 40.8 (37.0-46.0) % MCV 84.8 (78.0-102.0) fL MCH 29.5 (27.0-31.0) pg MCHC 34.8 (32-36) g/dL RDW 13.6 (11.6-14.4) % Plt Count 286 (150-420) K/mm3 MPV 9.3 (8.7-11.0) fl Immature Gran % (Auto) 0.8 H (0.0-0.0) % Neut % (Auto) 73.1 H (50.0-70.0) % Lymph % (Auto) 13.4 L (18.0-42.0) % Schuyler % (Auto) 8.6 (2.0-11.0) % Eos % (Auto) 3.5 (1.0-6.0) % Baso % (Auto) 0.6 (0.0-1.0) % Lymph # (Auto) 1.36 (1.10-4.50) K/mm3 Schuyler # (Auto) 0.87 (0.10-0.90) K/mm3 Eos # (Auto) 0.35 (0.02-0.50) K/mm3 Baso # (Auto) 0.06 (0.00-0.10) K/mm3 Abs Immat Gran (auto) 0.08 H (0.00-0.00) K/mm3 Absolute Neuts (auto) 7.42 H (1.70-7.20) K/mm3 Absolute Nucleated RBC 0.00 (0.00-0.00) K/mm3 Nucleated RBC % 0.0 (0-0.0) % PT 10.3 (9.50-12.1) Seconds INR 0.9 APTT 27.9 (23.9-30.70) Sec Sodium Cancelled 138 Potassium Cancelled 3.0 L Chloride Cancelled Carbon Dioxide Anion Gap BUN Creatinine Estim Creat Clear Calc Estimated GFR Glucose Calculated Osmolality Calcium Magnesium (1.8-2.4) mg/dL Total Bilirubin AST ALT Alkaline Phosphatase Troponin I (0.00-60.4) ng/L NT-Pro-B Natriuret Pep Total Protein Albumin Lipase (16-77) U/L 01/27/24 01/27/24 01/27/24 Range/Units 15:28 15:28 15:28 WBC (4.8-10.8) K/mm3 RBC (4.70-6.10) M/mm3 Hgb (12.4-15.3) g/dL Hct (37.0-46.0) % MCV (78.0-102.0) fL MCH (27.0-31.0) pg MCHC (32-36) g/dL RDW (11.6-14.4) % Plt Count (150-420) K/mm3 MPV (8.7-11.0) fl Immature Gran % (Auto) (0.0-0.0) % Neut % (Auto) (50.0-70.0) % Lymph % (Auto) (18.0-42.0) % Schuyler % (Auto) (2.0-11.0) % Eos % (Auto) (1.0-6.0) % Baso % (Auto) (0.0-1.0) % Lymph # (Auto) (1.10-4.50) K/mm3 Schuyler # (Auto) (0.10-0.90) K/mm3 Eos # (Auto) (0.02-0.50) K/mm3 Baso # (Auto) (0.00-0.10) K/mm3 Abs Immat Gran (auto) (0.00-0.00) K/mm3 Absolute Neuts (auto) (1.70-7.20) K/mm3 Absolute Nucleated RBC (0.00-0.00) K/mm3 Nucleated RBC % (0-0.0) % PT (9.50-12.1) Seconds INR APTT (23.9-30.70) Sec Sodium Potassium Chloride 101 Carbon Dioxide Cancelled 25 Anion Gap Cancelled 12 BUN Cancelled Creatinine Estim Creat Clear Calc Estimated GFR Glucose Calculated Osmolality Calcium Magnesium (1.8-2.4) mg/dL Total Bilirubin AST ALT Alkaline Phosphatase Troponin I (0.00-60.4) ng/L NT-Pro-B Natriuret Pep Total Protein Albumin Lipase (16-77) U/L 01/27/24 01/27/24 01/27/24 Range/Units 15:28 15:28 15:28 WBC (4.8-10.8) K/mm3 RBC (4.70-6.10) M/mm3 Hgb (12.4-15.3) g/dL Hct (37.0-46.0) % MCV (78.0-102.0) fL MCH (27.0-31.0) pg MCHC (32-36) g/dL RDW (11.6-14.4) % Plt Count (150-420) K/mm3 MPV (8.7-11.0) fl Immature Gran % (Auto) (0.0-0.0) % Neut % (Auto) (50.0-70.0) % Lymph % (Auto) (18.0-42.0) % Schuyler % (Auto) (2.0-11.0) % Eos % (Auto) (1.0-6.0) % Baso % (Auto) (0.0-1.0) % Lymph # (Auto) (1.10-4.50) K/mm3 Schuyler # (Auto) (0.10-0.90) K/mm3 Eos # (Auto) (0.02-0.50) K/mm3 Baso # (Auto) (0.00-0.10) K/mm3 Abs Immat Gran (auto) (0.00-0.00) K/mm3 Absolute Neuts (auto) (1.70-7.20) K/mm3 Absolute Nucleated RBC (0.00-0.00) K/mm3 Nucleated RBC % (0-0.0) % PT (9.50-12.1) Seconds INR APTT (23.9-30.70) Sec Sodium Potassium Chloride Carbon Dioxide Anion Gap BUN 18 Creatinine Cancelled 0.97 Estim Creat Clear Calc Cancelled 70 Estimated GFR Cancelled Glucose Calculated Osmolality Calcium Magnesium (1.8-2.4) mg/dL Total Bilirubin AST ALT Alkaline Phosphatase Troponin I (0.00-60.4) ng/L NT-Pro-B Natriuret Pep Total Protein Albumin Lipase (16-77) U/L 01/27/24 01/27/24 01/27/24 Range/Units 15:28 15:28 15:28 WBC (4.8-10.8) K/mm3 RBC (4.70-6.10) M/mm3 Hgb (12.4-15.3) g/dL Hct (37.0-46.0) % MCV (78.0-102.0) fL MCH (27.0-31.0) pg MCHC (32-36) g/dL RDW (11.6-14.4) % Plt Count (150-420) K/mm3 MPV (8.7-11.0) fl Immature Gran % (Auto) (0.0-0.0) % Neut % (Auto) (50.0-70.0) % Lymph % (Auto) (18.0-42.0) % Schuyler % (Auto) (2.0-11.0) % Eos % (Auto) (1.0-6.0) % Baso % (Auto) (0.0-1.0) % Lymph # (Auto) (1.10-4.50) K/mm3 Schuyler # (Auto) (0.10-0.90) K/mm3 Eos # (Auto) (0.02-0.50) K/mm3 Baso # (Auto) (0.00-0.10) K/mm3 Abs Immat Gran (auto) (0.00-0.00) K/mm3 Absolute Neuts (auto) (1.70-7.20) K/mm3 Absolute Nucleated RBC (0.00-0.00) K/mm3 Nucleated RBC % (0-0.0) % PT (9.50-12.1) Seconds INR APTT (23.9-30.70) Sec Sodium Potassium Chloride Carbon Dioxide Anion Gap BUN Creatinine Estim Creat Clear Calc Estimated GFR > 60 Glucose Cancelled 98 Calculated Osmolality Cancelled 287 Calcium Cancelled Magnesium (1.8-2.4) mg/dL Total Bilirubin AST ALT Alkaline Phosphatase Troponin I (0.00-60.4) ng/L NT-Pro-B Natriuret Pep Total Protein Albumin Lipase (16-77) U/L 01/27/24 01/27/24 01/27/24 Range/Units 15:28 15:28 15:28 WBC (4.8-10.8) K/mm3 RBC (4.70-6.10) M/mm3 Hgb (12.4-15.3) g/dL Hct (37.0-46.0) % MCV (78.0-102.0) fL MCH (27.0-31.0) pg MCHC (32-36) g/dL RDW (11.6-14.4) % Plt Count (150-420) K/mm3 MPV (8.7-11.0) fl Immature Gran % (Auto) (0.0-0.0) % Neut % (Auto) (50.0-70.0) % Lymph % (Auto) (18.0-42.0) % Schuyler % (Auto) (2.0-11.0) % Eos % (Auto) (1.0-6.0) % Baso % (Auto) (0.0-1.0) % Lymph # (Auto) (1.10-4.50) K/mm3 Schuyler # (Auto) (0.10-0.90) K/mm3 Eos # (Auto) (0.02-0.50) K/mm3 Baso # (Auto) (0.00-0.10) K/mm3 Abs Immat Gran (auto) (0.00-0.00) K/mm3 Absolute Neuts (auto) (1.70-7.20) K/mm3 Absolute Nucleated RBC (0.00-0.00) K/mm3 Nucleated RBC % (0-0.0) % PT (9.50-12.1) Seconds INR APTT (23.9-30.70) Sec Sodium Potassium Chloride Carbon Dioxide Anion Gap BUN Creatinine Estim Creat Clear Calc Estimated GFR Glucose Calculated Osmolality Calcium 8.8 Magnesium 1.7 L (1.8-2.4) mg/dL Total Bilirubin Cancelled 0.6 AST Cancelled 24 ALT Cancelled Alkaline Phosphatase Troponin I (0.00-60.4) ng/L NT-Pro-B Natriuret Pep Total Protein Albumin Lipase (16-77) U/L 01/27/24 01/27/24 01/27/24 Range/Units 15:28 15:28 15:28 WBC (4.8-10.8) K/mm3 RBC (4.70-6.10) M/mm3 Hgb (12.4-15.3) g/dL Hct (37.0-46.0) % MCV (78.0-102.0) fL MCH (27.0-31.0) pg MCHC (32-36) g/dL RDW (11.6-14.4) % Plt Count (150-420) K/mm3 MPV (8.7-11.0) fl Immature Gran % (Auto) (0.0-0.0) % Neut % (Auto) (50.0-70.0) % Lymph % (Auto) (18.0-42.0) % Schuyler % (Auto) (2.0-11.0) % Eos % (Auto) (1.0-6.0) % Baso % (Auto) (0.0-1.0) % Lymph # (Auto) (1.10-4.50) K/mm3 Schuyler # (Auto) (0.10-0.90) K/mm3 Eos # (Auto) (0.02-0.50) K/mm3 Baso # (Auto) (0.00-0.10) K/mm3 Abs Immat Gran (auto) (0.00-0.00) K/mm3 Absolute Neuts (auto) (1.70-7.20) K/mm3 Absolute Nucleated RBC (0.00-0.00) K/mm3 Nucleated RBC % (0-0.0) % PT (9.50-12.1) Seconds INR APTT (23.9-30.70) Sec Sodium Potassium Chloride Carbon Dioxide Anion Gap BUN Creatinine Estim Creat Clear Calc Estimated GFR Glucose Calculated Osmolality Calcium Magnesium (1.8-2.4) mg/dL Total Bilirubin AST ALT 32 Alkaline Phosphatase Cancelled 58 Troponin I 12.1 (0.00-60.4) ng/L NT-Pro-B Natriuret Pep Cancelled 70 Total Protein Cancelled Albumin Lipase (16-77) U/L 01/27/24 01/27/24 01/27/24 Range/Units 15:28 15:28 17:41 WBC (4.8-10.8) K/mm3 RBC (4.70-6.10) M/mm3 Hgb (12.4-15.3) g/dL Hct (37.0-46.0) % MCV (78.0-102.0) fL MCH (27.0-31.0) pg MCHC (32-36) g/dL RDW (11.6-14.4) % Plt Count (150-420) K/mm3 MPV (8.7-11.0) fl Immature Gran % (Auto) (0.0-0.0) % Neut % (Auto) (50.0-70.0) % Lymph % (Auto) (18.0-42.0) % Schuyler % (Auto) (2.0-11.0) % Eos % (Auto) (1.0-6.0) % Baso % (Auto) (0.0-1.0) % Lymph # (Auto) (1.10-4.50) K/mm3 Schuyler # (Auto) (0.10-0.90) K/mm3 Eos # (Auto) (0.02-0.50) K/mm3 Baso # (Auto) (0.00-0.10) K/mm3 Abs Immat Gran (auto) (0.00-0.00) K/mm3 Absolute Neuts (auto) (1.70-7.20) K/mm3 Absolute Nucleated RBC (0.00-0.00) K/mm3 Nucleated RBC % (0-0.0) % PT (9.50-12.1) Seconds INR APTT (23.9-30.70) Sec Sodium Potassium Chloride Carbon Dioxide Anion Gap BUN Creatinine Estim Creat Clear Calc Estimated GFR Glucose Calculated Osmolality Calcium Magnesium (1.8-2.4) mg/dL Total Bilirubin AST ALT Alkaline Phosphatase Troponin I 12.1 (0.00-60.4) ng/L NT-Pro-B Natriuret Pep Total Protein 7.4 Albumin Cancelled 3.4 Lipase 146 H (16-77) U/L Imaging Data Attestation: I personally reviewed and interpreted this imaging study as follows: ECG Data EKG #1: Attestation: I personally reviewed and interpreted this ECG as follows: ECG completion date: 01/27/24 ECG completion time: 15:21 EKG Interpretation: normal rate, sinus rhythm, no ectopy, non-specific ST changes, normal QRS, normal QT and NL axis EKG #2: Attestation: I personally reviewed and interpreted this ECG as follows: ECG completion date: 01/27/24 ECG completion time: 19:19 EKG Interpretation: bradycardia, no ectopy, non-specific ST changes, normal QRS, normal QT and NL axis Discharge Plan Discharge Clinical Impression: Hypomagnesemia, Hypokalemia Chest pain Qualifiers: Chest pain type: unspecified Qualified Code(s): R07.9 - Chest pain, unspecified Patient Disposition: Acute Care Hospital Condition: Stable Prescriptions: No Action hydralazine 10 mg Tablet 20 mg PO BID amlodipine 10 mg Tablet 10 mg PO DAILY Brilinta 90 mg Tablet 90 mg PO Q12H Incruse Ellipta 62.5 mcg/actuation Blister With Device 1 inh INHALATION DAILY ipratropium-albuterol 0.5 mg-3 mg(2.5 mg base)/3 mL solution for nebulization 3 ml INHALATION QID albuterol sulfate 90 mcg/actuation HFA aerosol inhaler 2 puff INHALATION PRN PRN (Reason: Shortness Of Breath Or Wheezing) aspirin 81 mg Tablet,Delayed Release (Dr/Ec) 81 mg PO QAM Qty: 30 1RF atorvastatin 20 mg Tablet 20 mg PO DAILY Qty: 30 1RF hydrochlorothiazide 12.5 mg Capsule 12.5 mg PO QAM Qty: 30 1RF Follow-up/Referrals: Cceil,Nima Lund MD [Non-Staff] - Time of Disposition: 19:59
--- NOTE | 2024-01-27 15:30 | PC.NURSE ---
Patient taken down to Ct
[2024-01-27 15:40] LABS: Basophils Absolute Auto 0.06 K/mm3 (0.00-0.10); Basophils Percent Auto 0.6 % (0.0-1.0); Eosinophils Absolute Auto 0.35 K/mm3 (0.02-0.50); Eosinophils Percent Auto 3.5 % (1.0-6.0); Hematocrit 40.8 % (37.0-46.0); Hemoglobin 14.2 g/dL (12.4-15.3); Immature Granulocyte Absolute 0.08 K/mm3 (0.00-0.00); Immature Granulocyte Percent A 0.8 % (0.0-0.0); Lymphocytes Absolute Auto 1.36 K/mm3 (1.10-4.50); Lymphocytes Percent Auto 13.4 % (18.0-42.0); Mean Corpuscular HGB Conc 34.8 g/dL (32-36); Mean Corpuscular Hemoglobin 29.5 pg (27.0-31.0); Mean Corpuscular Volume 84.8 fL (78.0-102.0); Mean Platelet Volume 9.3 fl (8.7-11.0); Monocytes Absolute Auto 0.87 K/mm3 (0.10-0.90); Monocytes Percent Auto 8.6 % (2.0-11.0); Neutrophils Absolute Auto 7.42 K/mm3 (1.70-7.20); Neutrophils Percent Auto 73.1 % (50.0-70.0); Platelet Count Result 286 K/mm3 (150-420); Red Blood Count 4.81 M/mm3 (4.70-6.10); Red Cell Distribution Width 13.6 % (11.6-14.4); White Blood Count 10.1 K/mm3 (4.8-10.8)
[2024-01-27 15:50] LABS: INR 0.9; Partial Thromboplastin Time 27.9 Sec (23.9-30.70); Prothrombin Time 10.3 Seconds (9.50-12.1)
[2024-01-27 15:57] LABS: Alanine Aminotransferase 32 U/L (16-63); Albumin Level 3.4 g/dL (3.4-5.0); Alkaline Phosphatase 58 U/L (46-116); Anion Gap 12 mmol/L (4-12); Aspartate Amino Transferase 24 U/L (15-37); Bilirubin,Total 0.6 mg/dL (0.00-1.00); Blood Urea Nitrogen 18 mg/dL (7-18); Calcium 8.8 mg/dL (8.5-10.1); Carbon Dioxide 25 mmol/L (21-32); Chloride 101 mmol/L (98-108); Estimated CRCL calculation 70 ml/min; Estimated Glomerular Filt Rate > 60; Glucose 98 mg/dL (70-99); Lipase 146 U/L (16-77); Magnesium 1.7 mg/dL (1.8-2.4); NT Pro B Type Natriuretic Pept 70 pg/mL (0-125); Osmolality Calculated 287 mOsm/kg (285-295); Sodium 138 mmol/L (136-145); Total Protein 7.4 g/dL (6.4-8.2); Troponin I 12.1 ng/L (0.00-60.4)
[2024-01-27] MEDS: MAGNESIUM OXIDE 400 MG TABLET PO (16:17)
[2024-01-27] MEDS: POTASSIUM CHLORIDE 20 MEQ ER TABLET 40 MEQ PO (16:17)
--- NOTE | 2024-01-27 17:42 | PC.NURSE ---
patient ambulatory to bathroom with steady gait.
--- NOTE | 2024-01-27 17:49 | PC.NURSE ---
patient back in room from bathroom.
[2024-01-27] MEDS: ACETAMINOPHEN 500 MG TABLET 1000 MG PO (17:52)
[2024-01-27 18:01] LABS: Troponin I 12.1 ng/L (0.00-60.4)
--- NOTE | 2024-01-27 19:05 | ECG_ITS ---
Test Date: 2024-01-27 19:14:12 Measurements Intervals [place] Rate: 56 P: 42 IA: 142 QRS: -6 QRSD: 115 T: 68 QT: 441 QTc: 429 Interpretive Statements SINUS BRADYCARDIA INCOMPLETE RIGHT BUNDLE BRANCH BLOCK [90+ ms QRS DURATION, TERMINAL R IN V1/V2, 40+ ms S IN I/aVL/V4/V5/V6] SEPTAL MYOCARDIAL INFARCTION , PROBABLY OLD [40+ ms Q WAVE IN V1/V2] Compared to ECG 01/27/2024 15:00:06 NO SIGNIFICANT CHANGES Electronically Signed On 01-29-2024 09:36:21 CDT by Rosa Zuñiga M.D.
--- NOTE | 2024-01-27 20:30 | PC.NURSE ---
This RN attempted IV access multiple times, was unsuccessful. 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 Patient states they generally have to put a picc line in for access.
[2024-01-27] MEDS: ASPIRIN 81 MG CHEWABLE TABLET 324 MG PO (20:50)
--- NOTE | 2024-01-27 20:57 | PC.NURSE ---
Spoke with Veronica from [facility]- they are going to update his medical moment in their system and reach out to his agent on his behalf. They are aware that he will be transferred to [facility] at this time.
== END 2024-01-27 21:55 | disposition short-term general hospital (02) ==
PROVIDERS: Emergency Provider Emergency Medicine
DX: E83.42 Hypomagnesemia (principal); E87.6 Hypokalemia; R07.9 Chest pain, unspecified; I25.10 Atherosclerotic heart disease of native coronary artery without angina pectoris; I25.2 Old myocardial infarction; Z95.5 Presence of coronary angioplasty implant and graft; Z79.899 Other long term (current) drug therapy; I10 Essential (primary) hypertension; F17.210 Nicotine dependence, cigarettes, uncomplicated
CPT/HCPCS: 36415; 71046; 74176; 80053; 83690; 83735; 83880; 84484; 85025; 85610; 85730; 93005; 99285; A9270